=== PATIENT | female | born 1970 | race Caucasian/White ===

== ENCOUNTER 2020-03-20 11:32 | Emergency (ER) | payer BC ==
--- NOTE | 2020-03-20 12:31 | ED ---
Extremity Problem HPI - General Chief complaint: Extremity Problem,Nontraumatic Stated complaint: poss blood clot/sent by pcp Time Seen by Provider: 03/20/20 12:00 Source: patient Mode of arrival: wheelchair Limitations: physical limitation - History of Present Illness Initial comments: Patient is a 50-year-old female, with history of hypertension, presenting to the emergency Department with complaints of right lower extremity swelling 1 week. Patient states she has history of hypertension and does take Norvasc regularly. Patient states the last 6 months she's been going through divorce and with the virus outbreak has been especially stressed. Patient states she's been monitoring her blood pressure at home and felt like it was high so she did a video conference with her PCP who up her Norvasc to 10 mg daily. Patient states she did this for 2 days and then noticed swelling of her bilateral lower legs. She also noticed a light redness to the legs as well. She then decrease her medication to just 5 mg daily and the redness did subside however she still having swelling of her right lower extremity. Patient had another video conference with her PCP who recommended she go into the ER to evaluate for a possible DVT of her right leg. Patient states she did test positive for and has been recovering. Patient denies fever, chills, chest pain, shortness of breath, numbness and tingling to her lower extremities. She denies history of blood clots. She has no other complaints at this time. Upon arrival to the ER, her vitals are stable. - Related Data Allergies Allergy/AdvReac Type Severity Reaction Status Date / Time Iodinated Contrast Media Allergy Dyspnea Verified 03/20/20 11:44 shellfish derived [Shellfish] Allergy Dyspnea Verified 03/20/20 11:44 Review of Systems ROS Statement: Those systems with pertinent positive or pertinent negative responses have been documented in the HPI. ROS Other: All systems not noted in ROS Statement are negative. Past Medical History Past Medical History: Hypertension Additional Past Medical History / Comment(s): achilles tendoninjury History of Any Multi-Drug Resistant Organisms: None Reported Past Surgical History: No Surgical Hx Reported Past Psychological History: No Psychological Hx Reported Smoking Status: Never smoker Past Alcohol Use History: None Reported Past Drug Use History: None Reported General Exam - General Exam Comments Initial Comments: GENERAL: Well-appearing, well-nourished and in no acute distress. HEAD: Atraumatic, normocephalic. EYES: Pupils equal round and reactive to light, extraocular movements intact, sclera anicteric, conjunctiva are normal. ENT: TMs normal, nares patent, oropharynx clear without exudates. Moist mucous mem branes. NECK: Normal range of motion, supple without lymphadenopathy or JVD. LUNGS: Breath sounds clear to auscultation bilaterally and equal. No wheezes rales or rhonchi. HEART: Regular rate and rhythm without murmurs, rubs or gallops. ABDOMEN: Soft, nontender, normoactive bowel sounds. No guarding, no rebound. No masses appreciated. : Deferred EXTREMITIES: Mild swelling noted of the right lower extremity when compared to the left. There is no erythema or pain with palpation. She is neurovascular intact. She has normal range of motion of bilateral lower extremities. NEUROLOGICAL: Normal speech, normal gait. PSYCH: Normal mood, normal affect. SKIN: Warm, Dry, normal turgor, no rashes or lesions noted. Limitations: physical limitation Course Vital Signs 03/20/20 03/20/20 11:39 13:46 Temperature 98.0 F 98.2 F Pulse Rate 86 74 Respiratory 18 16 Rate Blood Pressure 164/91 135/79 O2 Sat by Pulse 100 98 Oximetry Medical Decision Making - Medical Decision Making Patient is a 50-year-old female with history of hypertension presenting for evaluation of possible DVT of her right lower extremity. She was sent in by her PCP. Her vitals are stable. Patient does have mild swelling of her right lower extremity when compared to left. There is no erythema or pain. Ultrasound of the right lower extremity reveals no evidence of DVT. I discussed with patient this might be a result of her medication changes. Patient also admits to decrease in her regular exercise. I recommended using compression stockings while at work, elevating her legs. She will follow up with her PCP. She is in agreement this plan of care. Return parameters were discussed with the patient she verbalized understanding. Case discussed with Dr. Dwyer. Disposition Clinical Impression: Right leg swelling Disposition: HOME SELF-CARE Condition: Stable Instructions (If sedation given, give patient instructions): Leg Edema (ED) Additional Instructions: Please return to the Emergency Department if symptoms worsen or any other concerns. Trial of compression stockings, leg elevation. Follow-up with PCP. Is patient prescribed a controlled substance at d/c from ED?: No Referrals: Weston Gutierres MD [Primary Care Provider] - 1-2 days
--- NOTE | 2020-03-20 13:18 | US ---
EXAMINATION TYPE: US venous doppler duplex LE RT DATE OF EXAM: 03/20/2020 12:59 PM COMPARISON: NONE CLINICAL HISTORY: 50-year-old female swelling. Edema SIDE PERFORMED: Right TECHNIQUE: The lower extremity deep venous system is examined utilizing real time linear array sonog carlos with graded compression, doppler sonography and color-flow sonography. FINDINGS: VESSELS IMAGED: External Iliac Vein (EIV) Common Femoral Vein Deep Femoral Vein Greater Saphenous Vein * Femoral Vein Popliteal Vein Small Saphenous Vein * Proximal Calf Veins (* superficial vessels) Right Leg: Negative for DVT IMPRESSION: No evidence for DVT within the right lower extremity imaged from the groin to the upper calf.
[2020-03-20 13:47] VITALS: BP 135/79; PULSE 74; RESP 16; TEMP 98.2
== END 2020-03-20 13:47 | disposition home or self-care (01) ==
LOC: EC 11:32
DX: M79.89 Other specified soft tissue disorders (principal); I10 Essential (primary) hypertension; Z91.041 Radiographic dye allergy status; Z91.013 Allergy to seafood
CPT/HCPCS: 99283